=== PATIENT | female | born 1985 | race Caucasian/White ===

== ENCOUNTER 2018-08-25 08:59 | Emergency (ER) | payer OTHER ==
[~2018-08-25] VITALS: Ht 157.5 cm; Wt 73.0 kg
[~2018-08-25 08:59] MED LIST: HIERRO PO; PRENATAL 19 TA1 EACH PO
[2018-08-25] MEDS ORDERED: ZANTAC300 MG PO (09:19)
[2018-08-25] MEDS ORDERED: LEVSIN/SL0.125 MG PO (12:13)
[2018-08-25] MEDS ORDERED: PEPCID AC20 MG PO (12:13)
== END 2018-08-25 12:22 | disposition home or self-care (01) ==
LOC: ER 08:59
DX: K29.00 Acute gastritis without bleeding (principal)

== ENCOUNTER 2019-03-25 15:09 | Emergency (ER) | payer OTHER ==
[~2019-03-25] VITALS: Ht 157.5 cm; Wt 67.6 kg
[~2019-03-25 15:09] MED LIST changes: +LEVSIN/SL0.125 MG PO; +PEPCID AC20 MG PO; +ZANTAC300 MG PO
== END 2019-03-25 19:56 | disposition home or self-care (01) ==
LOC: ER 15:09
DX: J32.8 Other chronic sinusitis (principal)

== ENCOUNTER 2023-04-30 03:37 | Emergency (ER) | payer OTHER ==
[~2023-04-30] VITALS: Ht 160 cm; Wt 72.6 kg
== END 2023-04-30 04:55 | disposition home or self-care (01) ==
LOC: ER 03:37
DX: J06.9 Acute upper respiratory infection, unspecified (principal)